=== PATIENT | female | born 2000 | race Caucasian/White ===

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

== ENCOUNTER 2022-04-04 10:28 | Emergency (ER) | payer BC ==
[2022-04-04 10:56] LABS: #Lymphocytes 1.3 thou/uL (1.20-3.40); #Monocytes 0.7 thou/uL (0.11-0.59); #Neutrophils 15.2 thou/uL (1.40-6.50); %Basophils 0.3 % (0.0-1.0); %Eosinophils 0.1 % (0.0-10.0); %Lymphocytes 7.5 % (21.0-51.0); %Monocytes 3.9 % (0.0-10.0); %Neutrophils 88.3 % (42.0-75.0); Hemoglobin 15.9 g/dL (12.0-16.0); Mean Corpuscular HGB CONC 34.2 g/dL (32.0-36.0); Mean Corpuscular Hemoglobin 31.8 pg (27.0-31.0); Mean Corpuscular Volume 93.1 fl (78.0-98.0); Mean Platelet Volume 8.4 fL (7.4-10.4); Platelet Count 304 thou/uL (130-400); RBC Distribution Width 11.2 % (11.5-14.5); Red Blood Cell (RBC) Count 5.01 mill/uL (4.20-5.40); White Blood Cell (WBC) Count 17.2 thou/uL (4.8-10.8)
[2022-04-04 11:10] LABS: ALT (SGPT) 12 U/L (8-55); AST (SGOT) 17 U/L (5-34); Albumin 5.1 g/dL (3.5-5.0); Alkaline Phosphatase 70 U/L (40-110); Anion Gap 21 mmol/L (10-20); BUN (Urea Nitrogen) 9 mg/dL (7.0-18.7); Bilirubin, Total 1.1 mg/dL (0.2-1.2); Calc. Creatinine Clearance 0 mL/min (70-130); Calcium 9.9 mg/dL (7.8-10.44); Carbon Dioxide 19 mmol/L (22-29); Chloride 102 mmol/L (98-107); Estimated GFR 112; Globulin 3.1 g/dL (2.4-3.5); Glucose 108 mg/dL (70-105); Lipase 27 U/L (8-78); Potassium 4.1 mmol/L (3.5-5.1); Protein, Total 8.2 g/dL (6.0-8.3); Sodium 138 mmol/L (136-145)
[2022-04-04] MEDS ORDERED: Iopamidol-370 76% 500 ML 1 ML ONE (14:00)
[2022-04-04 14:29] LABS: BHCG - Serum Negative (NEGATIVE); Pregs Control Background? CLEAR/WHITE (CLR/WHITE); Pregs Control Bar Appear? YES (CONTROL BAR)
[2022-04-04 14:35] LABS: CK (CPK) 50 U/L (29-168); Magnesium 2.3 mg/dL (1.6-2.6)
[2022-04-04 14:52] LABS: INR-International Normal Ratio 1.1; Prothrombin Time 14.1 sec (12.0-14.7)
[2022-04-04 16:00] LABS: Bilirubin Negative (Negative); Blood, Urine Negative (Negative); Clarity Clear (Clear); Glucose, Urine (Dipstick) Normal (Negative); Ketone, Urine Greater than 150 mg/dL (Negative); Leukocyte Negative Leu/uL (Negative); Nitrite Negative (Negative); Protein, Urine (Dipstick) 10 mg/dL (Neg-Trace); Urobilinogen Normal mg/dL (Less than 2)
[2022-04-04] MEDS ORDERED: Ondansetron PF 4 MG/2 ML Vial ONE (16:05)
[2022-04-04] MEDS ORDERED: Dicyclomine 20 MG/2 ML VIAL ONE (16:05)
[2022-04-04 16:10] LABS: Pregnancy Test - Urine (BHCG) Negative (Negative); Pregu Control Background? CLEAR/WHITE (CLR/WHITE); Pregu Control Bar Appear? YES (CONTROL BAR)
[2022-04-04] MEDS ORDERED: Ketorolac Tromethamine 30 MG/ML VIAL ONE (19:38)
[2022-04-04] MEDS ORDERED: metroNIDAZOLE 250 MG TAB ONE (20:24)
[2022-04-04] MEDS ORDERED: cefTRIAXone\\ROCEPHIN 1 GM VIAL ONE (20:24)
[2022-04-04] MEDS ORDERED: Doxycycline 100 MG CAP PO SCH (20:30)
[2022-04-04] MEDS ORDERED: metroNIDAZOLE 500 MG TAB PO SCH (20:30)
[2022-04-05 10:54] LABS: Chlamydia by PCR Not Detected (NotDetected); GC by PCR Not Detected (NotDetected)
== END 2022-04-04 23:23 | disposition short-term general hospital (02) ==
LOC: ERS 10:28
DX: N70.92 Oophoritis, unspecified (principal); D72.829 Elevated white blood cell count, unspecified
CPT/HCPCS: 36415; 71045; 74177; 76856; 80053; 81003; 81025; 82550; 83605; 83690; 83735; 84703; 85025; 85610; 85730; 87040; 87086; 87491; 87591; 93005; 96372; 96374; 96375; J0696; J1885; J2405; Q9967